=== PATIENT | female | born 1955 | race Caucasian/White ===

== ENCOUNTER 2024-03-03 06:02 | Emergency (ER) | payer OTHER ==
[2024-03-03] MEDS: Lidocaine 1% with EPINEPHrine 1:100,000 10 ML MDV INJECT ONE (06:39)
[2024-03-03] MEDS: Bacitracin/Neomycin/Polymyxin B Oint 0.9 GM U/D Packet TOP ONE (06:42)
== END 2024-03-03 06:44 | disposition home or self-care (01) ==
LOC: CC.ED 06:02
DX: S01.01XA Laceration without foreign body of scalp, initial encounter (principal); W23.0XXA Caught, crushed, jammed, or pinched between moving objects, initial encounter
CPT/HCPCS: 12002; 99282; 99283; A9270; J3490